=== PATIENT | male | born 1960 | race African-American/Black ===

== ENCOUNTER 2020-08-25 10:06 | Emergency (ER) | payer MEDICARE, OTHER ==
[~2020-08-25] VITALS: Ht 185.4 cm; Wt 140.6 kg
--- NOTE | 2020-08-25 10:23 | NUR ---
ED Nurse Note: Pt ambulated to ed c/o left lower abdomen pain radiating to lower back x 2-4 days. pt denies nausea/vomiting/diarrhea. pt reports that he has GBS. Gave pt urinal bottle for urine specimen. placed pt into patient gown.
[2020-08-25 10:24] VITALS: BP 170/100
--- NOTE | 2020-08-25 10:30 | NUR ---
ED Nurse Note: Pt states that he is unable to urinate since he went before entering ER
[2020-08-25] MEDS ORDERED: Omnipaque-300 100ml vial INJ PRN (10:45)
[2020-08-25] MEDS ORDERED: Morphine Sulfate 4mg/ml Inj (IV USE ONLY) IVP ONE (10:45)
--- NOTE | 2020-08-25 10:50 | NUR ---
ED Nurse Note: Pt reports nasuea s/p morphine administration
[2020-08-25 11:14] LABS: BASOPHILS % (AUTO) 3.1 % (0.0-2.0); EOSINOPHILS % (AUTO) 2.4 % (0.0-3.0); HEMATOCRIT 42.5 % (42.0-52.0); HEMOGLOBIN 13.1 G/DL (14.2-18.0); LYMPHOCYTES % (AUTO) 22.8 % (20.0-45.0); MEAN CORPUSCULAR VOLUME 94 FL (80-99); MONOCYTES % (AUTO) 5.5 % (1.0-10.0); NEUTROPHILS % (AUTO) 66.2 % (45.0-75.0); PLATELET COUNT 197 K/UL (150-450); RED BLOOD COUNT 4.53 M/UL (4.70-6.10); RED CELL DISTRIBUTION WIDTH 14.8 % (11.6-14.8); WHITE BLOOD COUNT 5.3 K/UL (4.8-10.8)
[2020-08-25 11:25] LABS: ANION GAP 9 mmol/L (5-15); BLOOD UREA NITROGEN 23 mg/dL (7-18); CALCIUM 8.6 MG/DL (8.5-10.1); CARBON DIOXIDE 27 MMOL/L (21-32); CHLORIDE 105 MMOL/L (98-107); CREATININE 1.4 MG/DL (0.55-1.30); POTASSIUM 3.7 MMOL/L (3.5-5.1); SODIUM 141 MMOL/L (136-145)
[2020-08-25 11:29] LABS: ALANINE AMINOTRANSFERASE 24 U/L (12-78); ALBUMIN/GLOBULIN RATIO 1.1 (1.0-2.7); ALKALINE PHOSPHATASE 84 U/L (46-116); ASPARTATE AMINO TRANSFERASE 21 U/L (15-37); BILIRUBIN,TOTAL 0.4 MG/DL (0.2-1.0)
--- NOTE | 2020-08-25 11:36 | NUR ---
ED Nurse Note: Pt taken to CT on gursofía. ERMD aware of pt BUN and Cr.
--- NOTE | 2020-08-25 11:55 | NUR ---
ED Nurse Note: Pt returned from CT
[2020-08-25 12:23] VITALS: BP 165/89
--- NOTE | 2020-08-25 12:24 | Diagnostic Imaging Report ---
EXAM: CT Abdomen and Pelvis With Intravenous Contrast CLINICAL HISTORY: ABD PAIN TECHNIQUE: Axial computed tomography images of the abdomen and pelvis with intravenous contrast. CTDI is 24.00 mGy and DLP is 1430.8 mGy-cm. One or more of the following dose reduction techniques were used: automated exposure control, adjustment of the mA and/or kV according to patient size, use of iterative reconstruction technique. COMPARISON: No relevant prior studies available. FINDINGS: Lung bases demonstrate no acute infiltrate. Mild atelectasis only. The liver and biliary tree and pancreas spleen and adrenal glands are within normal limits. There is bilateral perinephric stranding, a nonspecific finding. No hydronephrosis. Several colonic diverticula without diverticulitis. Unremarkable appendix. No bowel obstruction or perforation. Prostatomegaly without pathologic bladder distention. Fatty periumbilical hernia. Advanced thoracolumbar spondylosis. No acute fracture. IMPRESSION: Colonic diverticula without diverticulitis. No GI or urinary tract obstruction. Fatty periumbilical hernia.
--- NOTE | 2020-08-25 12:50 | NUR ---
ED Nurse Note: ERMD at bedside
[2020-08-25 13:05] VITALS: BP 162/81
--- NOTE | 2020-08-25 13:06 | NUR ---
ER DISCHARGE NOTE: Patient is cleared to be discharged per ERMD, pt is aox4, on room air, with stable vital signs. pt was given dc and prescription instructions, pt was able to verbalize understanding, pt id band and iv site removed without complications. pt is able to ambulate with steady gait. pt took all belongings.
[2020-08-25] MEDS ORDERED: ROBAXIN-750750 MG PO (13:16)
[2020-08-25] MEDS ORDERED: COLACE100 MG ORAL (13:16)
[2020-08-25] MEDS ORDERED: TYLENOL EXTRA500 MG ORAL (13:16)
--- NOTE | 2020-08-26 14:45 | Emergency Room Report ---
History of Present Illness General Chief Complaint: Abdominal Pain Source: Patient Present Illness HPI 59-year-old male presents to ED for abdominal pain. Notes pain to left lower abdomen radiating to the back. Dull, 10 out of 10. States pain started 3 days ago after doing some heavy lifting. Is not sure if this is a muscle strain. Denies diarrhea. Denies nausea or vomiting. no other aggravating relieving factors. Denies any other associated symptoms Allergies: Coded Allergies: PENICILLINS (Verified Allergy, Unknown, 08/25/20) COVID-19 Screening Contact w/high risk pt: No Experienced COVID-19 symptoms?: No COVID-19 Testing performed MAINTENANCE OF WAY CLERK: No Patient History Past Medical History: DM, HTN Past Surgical History: none Pertinent Family History: none Social History: Denies: smoking, alcohol use, drug use Immunizations: UTD Reviewed Nursing Documentation: PMH: Agreed; PSxH: Agreed Nursing Documentation-PMH Past Medical History: No History, Except For Hx Hypertension: Yes Hx Diabetes: Yes Review of Systems All Other Systems: negative except mentioned in HPI Physical Exam Vital Signs Date Time Temp Pulse Resp B/P (MAP) Pulse Ox O2 Delivery O2 Flow Rate FiO2 08/25/20 10:12 97.0 80 20 170/100 (123) 95 Room Air Sp02 EP Interpretation: reviewed, normal General Appearance: no apparent distress, alert, GCS 15, non-toxic, obese Head: normocephalic, atraumatic Eyes: bilateral eye normal inspection, bilateral eye PERRL ENT: hearing grossly normal, normal pharynx, no angioedema, normal voice Neck: full range of motion, supple/symm/no masses Respiratory: chest non-tender, lungs clear, normal breath sounds, speaking full sentences Cardiovascular #1: regular rate, rhythm, no edema Cardiovascular #2: 2+ carotid (R), 2+ carotid (L), 2+ radial (R), 2+ radial (L), 2+ dorsalis pedis (R), 2+ dorsalis pedis (L) Gastrointestinal: normal bowel sounds, soft, non-distended, no guarding, no rebound, tenderness Rectal: deferred Genitourinary: normal inspection, no CVA tenderness Musculoskeletal: back normal, normal range of motion, gait/station normal, non- tender Neurologic: alert, motor strength/tone normal, oriented x3, sensory intact, responsive, speech normal Psychiatric: judgement/insight normal, memory normal, mood/affect normal, no suicidal/homicidal ideation Reflexes: 3+ bicep (R), 3+ bicep (L), 3+ tricep (R), 3+ tricep (L), 3+ knee (R), 3+ knee (L) Skin: no rash Lymphatic: no adenopathy Medical Decision Making Diagnostic Impression: Primary Impression: Abdominal pain Qualified Codes: R10.32 - Left lower quadrant pain ER Course Hospital Course 59-year-old male presents with left-sided abdominal pain Differential diagnosis includes-diverticulitis, kidney stone, bowel obstruction Clinical course Patient placed on stretcher. After initial history and physical I ordered labs, IV fluids, pain medications and CT scan Labs - no leukocytosis, electrolytes ok, LFTs ok CT scan shows no acute pathology. Some diverticula noted. No diverticulitis. Some fecal impaction noted Upon reassessment, patient states pain has improved. I discussed findings with patient. No acute findings identified. Could be related to muscle strain versus some mild constipation. Will discharge with anti-inflammatories, muscle relaxer, stool softeners Safe for discharge with close outpatient follow-up. Recently moved here from [place] does not have a PMD. I will provide referrals I feel this is a highly complex case requiring extensive working including E KG/Rhythm strip, Xray/CT/US, Blood/urine lab work, repeat exams while in ED, and administration of strong opiates/narcotics for pain control, admission to hospital or close patient follow up. Diagnosis - abdominal pain Stable and discharged to home. Followup with PMD. Return to ED if symptoms recur or worsen Labs Test 08/25/20 10:32 White Blood Count 5.3 K/UL (4.8-10.8) Red Blood Count 4.53 M/UL (4.70-6.10) Hemoglobin 13.1 G/DL (14.2-18.0) Hematocrit 42.5 % (42.0-52.0) Mean Corpuscular Volume 94 FL (80-99) Mean Corpuscular Hemoglobin 28.9 PG (27.0-31.0) Mean Corpuscular Hemoglobin Concent 30.8 G/DL (32.0-36.0) Red Cell Distribution Width 14.8 % (11.6-14.8) Platelet Count 197 K/UL (150-450) Mean Platelet Volume 7.5 FL (6.5-10.1) Neutrophils (%) (Auto) 66.2 % (45.0-75.0) Lymphocytes (%) (Auto) 22.8 % (20.0-45.0) Monocytes (%) (Auto) 5.5 % (1.0-10.0) Eosinophils (%) (Auto) 2.4 % (0.0-3.0) Basophils (%) (Auto) 3.1 % (0.0-2.0) Sodium Level 141 MMOL/L (136-145) Potassium Level 3.7 MMOL/L (3.5-5.1) Chloride Level 105 MMOL/L (98-107) Carbon Dioxide Level 27 MMOL/L (21-32) Anion Gap 9 mmol/L (5-15) Blood Urea Nitrogen 23 mg/dL (7-18) Creatinine 1.4 MG/DL (0.55-1.30) Estimat Glomerular Filtration Rate > 60 mL/min (>60) Glucose Level 84 MG/DL (74-106) Calcium Level 8.6 MG/DL (8.5-10.1) Total Bilirubin 0.4 MG/DL (0.2-1.0) Aspartate Amino Transf (AST/SGOT) 21 U/L (15-37) Alanine Aminotransferase (ALT/SGPT) 24 U/L (12-78) Alkaline Phosphatase 84 U/L (46-116) Total Protein 7.6 G/DL (6.4-8.2) Albumin 4.0 G/DL (3.4-5.0) Globulin 3.6 g/dL Albumin/Globulin Ratio 1.1 (1.0-2.7) Lipase 105 U/L (73-393) CT/MRI/US Diagnostic Results CT/MRI/US Diagnostic Results : Imaging Test Ordered: CT A/P Impression Procedure: CT Abdomen Pelvis w/Contrast EXAM: CT Abdomen and Pelvis With Intravenous Contrast CLINICAL HISTORY: ABD PAIN TECHNIQUE: Axial computed tomography images of the abdomen and pelvis with intravenous contrast. CTDI is 24.00 mGy and DLP is 1430.8 mGy-cm. One or more of the following dose reduction techniques were used: automated exposure control, adjustment of the mA and/or kV according to patient size, use of iterative reconstruction technique. COMPARISON: No relevant prior studies available. FINDINGS: Lung bases demonstrate no acute infiltrate. Mild atelectasis only. The liver and biliary tree and pancreas spleen and adrenal glands are within normal limits. There is bilateral perinephric stranding, a nonspecific finding. No hydronephrosis. Several colonic diverticula without diverticulitis. Unremarkable appendix. No bowel obstruction or perforation. Prostatomegaly without pathologic bladder distention. Fatty periumbilical hernia. Advanced thoracolumbar spondylosis. No acute fracture. IMPRESSION: Colonic diverticula without diverticulitis. No GI or urinary tract obstruction. Fatty periumbilical hernia. Last Vital Signs Date Time Temp Pulse Resp B/P (MAP) Pulse Ox O2 Delivery O2 Flow Rate FiO2 08/25/20 13:05 97.4 77 18 162/81 98 Room Air Status: improved Disposition: HOME, SELF-CARE Condition: Stable Scripts Docusate Sodium* (COLACE*) 100 Mg Capsule 100 MG ORAL THREE TIMES A DAY, #30 CAP Prov: Deuce Trivedi MD 08/25/20 Methocarbamol* (ROBAXIN-750*) 750 Mg Tablet 750 MG PO TID, #21 TAB 0 Refills Prov: Deuce Trivedi MD 08/25/20 Acetaminophen* (TYLENOL EXTRA STRENGTH*) 500 Mg Tablet 500 MG ORAL Q8H PRN for Prn Headache/Temp > 101, #30 TAB 0 Refills Prov: Deuce Trivedi MD 08/25/20 Referrals: Brando Fields MD, Rajendra MD Shadi, Payam MD Patient Instructions: Diverticulosis Deuce Trivedi MD Aug 26, 2020 14:45
== END 2020-08-25 13:12 | disposition home or self-care (01) ==
LOC: EMR 10:53
DX: R10.32 Left lower quadrant pain (principal); I10 Essential (primary) hypertension; E11.9 Type 2 diabetes mellitus without complications; Z88.0 Allergy status to penicillin
CPT/HCPCS: 36415; 74177; 80053; 83690; 85025; 96361; 96374; 96375; 99284; J2270; J2405; J7030; Q9965